=== PATIENT | female | born 1960 | race Caucasian/White ===

== ENCOUNTER 2022-06-15 19:46 | Emergency (ER) | payer OTHER ==
[~2022-06-15] VITALS: Ht 152.4 cm; Wt 72.6 kg
--- NOTE | 2022-06-15 21:40 | NUR ---
BIBS. L WRIST & L FOOT PAIN S/P TRIP & FALL. +HT, -KO, ON ASPIRIN (MWF)
[2022-06-15] MEDS ORDERED: KETOROLAC TROMETHAMINE INJ 60 MG/2 ML VIAL IM ONE (22:30)
[2022-06-15] MEDS ORDERED: TRAMADOL HCL 50 MG TABLET PO ONE (22:30)
[2022-06-15] MEDS ORDERED: TRAMADOL HCL 50 MG TABLET ONE (22:31)
[2022-06-15] MEDS ORDERED: KETOROLAC TROMETHAMINE INJ 30 MG/ML VIAL ONE (22:31)
--- NOTE | 2022-06-15 22:35 | NUR ---
DR LAW SAENZ AT PT'S BEDSIDE FOR EVAL
[2022-06-15] MEDS ORDERED: KETO10TA2 PO (22:55)
[2022-06-15] MEDS ORDERED: HYDR-4209 PO (22:55)
[2022-06-15 23:31] VITALS: BP 149/85
== END 2022-06-15 23:31 | disposition home or self-care (01) ==
LOC: ER 19:55
DX: S52.592A Other fractures of lower end of left radius, initial encounter for closed fracture (principal); S00.83XA Contusion of other part of head, initial encounter; I10 Essential (primary) hypertension; Z79.899 Other long term (current) drug therapy; W01.0XXA Fall on same level from slipping, tripping and stumbling without subsequent striking against object, initial encounter; Y93.89 Activity, other specified; Y92.89 Other specified places as the place of occurrence of the external cause; Y99.8 Other external cause status
CPT/HCPCS: 99285; 72125; 29125; 96372; 73630; 70450; 73110; J1885